=== PATIENT | female | born 1970 | race Caucasian/White ===

== ENCOUNTER 2017-11-25 19:35 | Emergency (ER) | payer OTHER ==
[~2017-11-25] VITALS: Ht 165.1 cm; Wt 60.8 kg
[2017-11-25] MEDS ORDERED: 'PARAFON FORTE500 M1 PO (20:06)
[2017-11-25] MEDS ORDERED: IBU800 MG PO (20:06)
== END 2017-11-25 19:55 | disposition home or self-care (01) ==
LOC: ED 19:35
DX: M25.512 Pain in left shoulder (principal); R03.0 Elevated blood-pressure reading, without diagnosis of hypertension; Z88.6 Allergy status to analgesic agent; Z88.8 Allergy status to other drugs, medicaments and biological substances

== ENCOUNTER → 2017-11-30 | Outpatient (CLI) | payer OTHER ==
[~2017-11-30] MED LIST: 'PARAFON FORTE500 M1 PO; IBU800 MG PO
== END | disposition home or self-care (01) ==
LOC: CARD 13:28
DX: I10 Essential (primary) hypertension (principal); R94.31 Abnormal electrocardiogram [ECG] [EKG]

== ENCOUNTER 2017-12-10 22:12 | Inpatient (IN) | payer OTHER ==
[~2017-12-10] VITALS: Ht 162.5 cm; Wt 59.9 kg
--- NOTE | ~2017-12-10 | CON ---
[place], [place] REPORT OF CONSULTATION NAME: ORGER WINCHESTER [facility] #: [id number] UNIT #: [id number] ROOM: 415 DOCTOR: EVELYN SAENZ MD BIRTHDATE: [birth year] DOS: 12/11/2017 REASON FOR CONSULTATION: Chest pain. HISTORY OF PRESENT ILLNESS: The patient is a 47-year-old woman who states that she has had a history of chest pain, but has never been diagnosed as having heart disease. She believes that she had a stress test about 5 years ago that was unremarkable. She states that she has had electrocardiograms that have been unremarkable. She is currently visiting in this area to assist, her parents have gotten older and ill. Typically, she lives in [place]. The patient states that she was undergoing physical therapy for a shoulder problem in early October 2017. The therapist pulled on her left arm, causing immediate sharp, severe shoulder pain. Since then, she has had a pain in her left upper anterior chest. The pains have worsened and are exacerbated by movement of the arm, deep breathing or twisting. She became concerned, however, and therefore because the pains were worse, she came to the Emergency Room. Currently, she is comfortable, but still has constant pain in her left arm. PAST MEDICAL HISTORY: Includes: 1. Essential hypertension. 2. Discoid lupus. 3. Rotator cuff injury. 4. Fibromyalgia. 5. Chronic back pain. 6. History of anxiety and panic. 7. History of stress testing 5 years ago while in [place]. The patient states that the results were unremarkable. MEDICATIONS: Prior to admission include amlodipine 2.5 mg per day, albuterol inhaler p.r.n., baclofen ____ mg b.i.d., chlorzoxazone 500 mg t.i.d. with food, diphenhydramine 12.5 mg q. 4 hours p.r.n. itching, hydroxyzine 25 mg p.r.n. anxiety, ibuprofen 800 mg t.i.d. p.r.n., loratadine 10 mg per day, methylphenidate 40 mg per day, topiramate 100 mg at bedtime, hydrocortisone applied daily and lidocaine cream t.i.d. p.r.n. ALLERGIES: She lists allergies to ASPIRIN and CYCLOBENZAPRINE. FAMILY HISTORY: The patient's mother has hypertension and diabetes. The patient's father is 70 years of old and recently developed heart failure. REVIEW OF SYSTEMS: The patient denies diplopia or loss of vision. She does feel weak in her left arm since she has had an injury to her shoulder. She is chronically fatigued. She does have diffuse muscle aching from fibromyalgia. She denies nausea or vomiting. She denies cough or hemoptysis. She denies hematemesis. She does have dry skin, but denies skin rashes. She denies any change in bowel or bladder habits and denies blood in her stools or urine. She denies any peripheral edema. The remainder of the review of systems is negative except as noted above. [place], [place] REPORT OF CONSULTATION NAME: ROGER WINCHESTER UNIT #: [id number] ROOM: [facility] DOCTOR: EVELYN SAENZ MD BIRTHDATE: [birth year] The patient does have multiple tattoos on her back and legs. SOCIAL HISTORY: The patient does not consume alcohol or cigarettes. PHYSICAL EXAMINATION: GENERAL: The patient is a slender white female who is awake, alert and oriented. VITAL SIGNS: Pulse is 67 and regular; blood pressure is 145/80. She is afebrile. HEENT: Normocephalic and atraumatic. Extraocular muscles are intact. Sclerae are clear. Pupils are equal, round and react to light. The oral mucosa is moist. Tongue is midline. NECK: Supple. She has no jugular distention. Carotids are full. I heard no bruits. She had no neck or supraclavicular masses and no thyromegaly. LUNGS: Respirations are unlabored. Her chest is clear to auscultation and percussion. She has no presacral edema or chest wall tenderness, aside from the diffuse muscular tenderness that she has when you palpate any portion of her body. HEART: Has a regular rhythm with a very soft fourth heart sound. There is no third heart sound or murmur. The PMI is not displaced. She has no precordial heave, lift or thrill. ABDOMEN: Soft and normally active without masses, organomegaly or bruits. EXTREMITIES: Showed no edema. Peripheral pulses were easily palpated in the feet bilaterally. She has multiple well-healed tattoos on her back and legs. LABORATORY DATA: I reviewed her electrocardiograms. She has sinus rhythm with nonspecific ST changes, but no acute ST elevations or depressions. Serial troponins have been negative x 3. Hemoglobin is 12.6, white count 6200, platelet count 281,000. Sodium 139, potassium 3.0 (being replaced), chloride 107, CO2 of 24, BUN 23, creatinine 1.05. Vitamin D level is somewhat low at 23.9. IMPRESSION: 1. Atypical chest pain. This is most likely musculoskeletal in origin, however. the patient is quite concerned about her heart and does have some risk factors. We will therefore proceed with a pharmacologic myocardial perfusion study. The patient believes that her fibromyalgia would preclude her from exercising for the test. 2. History of fibromyalgia. 3. Chronic fatigue. PLAN: We will proceed with a pharmacologic stress test as noted above. Further recommendations will depend upon the results of the stress test. We thank the hospitalist physicians for asking our advice regarding management of this patient. [place], [place] REPORT OF CONSULTATION NAME: ROGER WINCHESTER UNIT #: [id number] ROOM: 415 DOCTOR: EVELYN SAENZ MD BIRTHDATE: [birth year] EVELYN SAENZ MD CM:CONSTR:REPORT OF CONSULTATION 0924 12/11/17 0957 interface
[2017-12-10 22:29] VITALS: BP 162/73
[2017-12-10 22:38] LABS: BASO % 0.4 % (0.0-1.0); EOS # 0.1 10*3/uL (0.0-0.4); EOS % 0.7 % (1.0-4.0); HEMATOCRIT 38.1 % (37.0-47.0); LYMPH # 3.4 10*3/uL (1.3-4.4); MEAN CELL VOLUME 88.2 fl (81.0-99.0); MEAN CORPUSCULAR HGB 30.1 pg (27.0-31.0); MEAN CORPUSCULAR HGB CONC 34.1 g/dl (33.0-37.0); MEAN PLATELET VOLUME 9.5 fl (9.6-12.3); MONO # 0.9 10*3/uL (0.1-1.0); MONO % 8.8 % (3.0-9.0); NEUT # 5.9 10*3/uL (2.3-7.9); NEUT % 56.8 % (47.0-73.0); PLATELET COUNT AUTOMATED 297 10*3/uL (130-400); RED BLOOD COUNT 4.32 10*6/uL (4.10-5.10); RED CELL DISTRI WIDTH 12.8 % (0-14.5); WHITE BLOOD COUNT 10.4 10*3/uL (4.8-10.8)
[2017-12-10 22:48] LABS: ACT PARTIAL THROMBO TIME 27.2 SECONDS (20.8-31.5); INTERNATIONAL NORM RATIO 1.1 (2.0-3.5)
[2017-12-10 22:55] LABS: ALBUMIN 4.3 gm/dl (3.1-4.5); ALKALINE PHOSPHATASE 95 U/L (45-117); BUN 25 mg/dl (7-24); CHLORIDE 106 mmol/L (98-107); CREATININE 1.32 mg/dL (0.55-1.02); POTASSIUM 3.3 mmol/L (3.5-5.1); SGOT/AST 19 IU/L (3-35); SGPT/ALT 15 U/L (12-78); SODIUM 139 mmol/L (136-145); TOTAL PROTEIN 7.9 gm/dL (6.4-8.2)
[2017-12-10 22:56] LABS: TROPONIN I < 0.015 ng/ml (<0.045)
[2017-12-10 23:37] VITALS: BP 140/63
[2017-12-11 01:18] VITALS: BP 115/77
[2017-12-11] MEDS ORDERED: BACLOFEN20 M1 PO (01:49)
[2017-12-11] MEDS ORDERED: BENADRYL ALLERG25 M5 PO (01:49)
[2017-12-11 01:51] VITALS: BP 152/75
[2017-12-11] MEDS ORDERED: CORT DOME 0.5%30 GM T (02:43)
[2017-12-11] MEDS ORDERED: HYDROXYZINE HCL25 MG PO (02:47)
[2017-12-11] MEDS ORDERED: LIDOCAINE15 GM T (02:49)
[2017-12-11] MEDS ORDERED: CLARITIN10 MG PO (02:50)
[2017-12-11] MEDS ORDERED: METHYLPHENIDATE40 M3 PO (02:51)
[2017-12-11] MEDS ORDERED: PROVENTIL HFA6.7 GM INH (02:52)
[2017-12-11] MEDS ORDERED: TOPAMAX100 M1 PO (02:53)
[2017-12-11 04:52] LABS: BASO # 0.1 10*3/uL (0.0-0.1); BASO % 0.8 % (0.0-1.0); EOS # 0.1 10*3/uL (0.0-0.4); HEMATOCRIT 37.8 % (37.0-47.0); HEMOGLOBIN 12.6 g/dl (12.0-16.0); LYMPH % 48.5 % (27.0-41.0); MEAN CELL VOLUME 88.3 fl (81.0-99.0); MEAN CORPUSCULAR HGB 29.4 pg (27.0-31.0); MEAN CORPUSCULAR HGB CONC 33.3 g/dl (33.0-37.0); MEAN PLATELET VOLUME 9.5 fl (9.6-12.3); MONO # 0.5 10*3/uL (0.1-1.0); MONO % 8.1 % (3.0-9.0); NEUT # 2.6 10*3/uL (2.3-7.9); NEUT % 41.4 % (47.0-73.0); PLATELET COUNT AUTOMATED 281 10*3/uL (130-400); RED BLOOD COUNT 4.28 10*6/uL (4.10-5.10); RED CELL DISTRI WIDTH 12.8 % (0-14.5); WHITE BLOOD COUNT 6.2 10*3/uL (4.8-10.8)
[2017-12-11 05:02] LABS: ACT PARTIAL THROMBO TIME 28.7 SECONDS (20.8-31.5); INTERNATIONAL NORM RATIO 1.1 (2.0-3.5)
[2017-12-11 05:03] LABS: BUN 23 mg/dl (7-24); CHLORIDE 107 mmol/L (98-107); CREATININE 1.05 mg/dL (0.55-1.02); SODIUM 139 mmol/L (136-145)
[2017-12-11 05:08] LABS: HDL CHOLESTEROL 59 mg/dl (40-60); TRIGLYCERIDES 143 mg/dl (<150); VLDL CHOLESTEROL 29 mg/dL (6-40)
[2017-12-11 05:56] LABS: CHOLESTEROL 162 mg/dL (<200); LDL CHOLESTEROL 74 mg/dL (9-159)
[2017-12-11 08:00] VITALS: BP 145/80
[2017-12-11 08:13] LABS: VITAMIN D, 25-HYDROXY 23.9 ng/mL (30-100)
[2017-12-11] MEDS ORDERED: BENADRYL A12.5 MG/1 PO (11:19)
[2017-12-11 12:00] VITALS: BP 136/78
[2017-12-11 16:00] VITALS: BP 132/65
[2017-12-11 20:00] VITALS: BP 104/71
[2017-12-12] VITALS: BP 104/52
[2017-12-12 04:07] VITALS: BP 108/72
[2017-12-12 06:44] LABS: BASO # 0.1 10*3/uL (0.0-0.1); BASO % 0.9 % (0.0-1.0); EOS # 0.2 10*3/uL (0.0-0.4); EOS % 3.1 % (1.0-4.0); HEMATOCRIT 36.1 % (37.0-47.0); LYMPH % 35.6 % (27.0-41.0); MEAN CELL VOLUME 89.1 fl (81.0-99.0); MEAN CORPUSCULAR HGB 29.6 pg (27.0-31.0); MEAN CORPUSCULAR HGB CONC 33.2 g/dl (33.0-37.0); MEAN PLATELET VOLUME 9.7 fl (9.6-12.3); MONO # 0.6 10*3/uL (0.1-1.0); MONO % 10.6 % (3.0-9.0); NEUT # 2.7 10*3/uL (2.3-7.9); NEUT % 49.4 % (47.0-73.0); PLATELET COUNT AUTOMATED 253 10*3/uL (130-400); RED BLOOD COUNT 4.05 10*6/uL (4.10-5.10); RED CELL DISTRI WIDTH 13.1 % (0-14.5); WHITE BLOOD COUNT 5.5 10*3/uL (4.8-10.8)
[2017-12-12 07:12] LABS: ALBUMIN 3.5 gm/dl (3.1-4.5); ALKALINE PHOSPHATASE 84 U/L (45-117); BUN 25 mg/dl (7-24); CHLORIDE 113 mmol/L (98-107); CREATININE 1.06 mg/dL (0.55-1.02); POTASSIUM 3.9 mmol/L (3.5-5.1); SGOT/AST 12 IU/L (3-35); SGPT/ALT 15 U/L (12-78); SODIUM 143 mmol/L (136-145); TOTAL PROTEIN 6.5 gm/dL (6.4-8.2)
[2017-12-12 08:00] VITALS: BP 104/54; BP 137/73
[2017-12-12] MEDS ORDERED: CEPHALEXIN250 MG PO (11:03)
[2017-12-12] MEDS ORDERED: NORVASC2.5 MG PO (11:31)
== END 2017-12-12 15:00 | disposition home or self-care (01) | DRG 313 ==
LOC: ED 22:12 → EDHOLD 12-11 00:50 → 4E 12-11 00:50
PROVIDERS: Emergency Medicine Emergency Medical Services; Internal Medicine; Registered Nurse
PROC: 4A02XM4 Measurement of Cardiac Total Activity, External Approach (ICD-10-PCS; principal; 2017-12-11)
PROC: 3E073KZ Introduction of Other Diagnostic Substance into Coronary Artery, Percutaneous Approach (ICD-10-PCS; 2017-12-11)
DX: R07.89 Other chest pain (principal); A69.20 Lyme disease, unspecified; E87.6 Hypokalemia; M25.512 Pain in left shoulder; G89.29 Other chronic pain; M79.7 Fibromyalgia; L93.0 Discoid lupus erythematosus; R03.0 Elevated blood-pressure reading, without diagnosis of hypertension; E55.9 Vitamin D deficiency, unspecified; F41.9 Anxiety disorder, unspecified; G43.909 Migraine, unspecified, not intractable, without status migrainosus; M54.9 Dorsalgia, unspecified; F43.10 Post-traumatic stress disorder, unspecified; M06.9 Rheumatoid arthritis, unspecified; Z83.3 Family history of diabetes mellitus; Z82.49 Family history of ischemic heart disease and other diseases of the circulatory system; Z88.6 Allergy status to analgesic agent; Z88.8 Allergy status to other drugs, medicaments and biological substances; Z79.899 Other long term (current) drug therapy

== ENCOUNTER → 2018-04-13 | Outpatient (CLI) | payer OTHER ==
[~2018-04-13] MED LIST changes: +BACLOFEN20 M1 PO; +BENADRYL A12.5 MG/1 PO; +BENADRYL ALLERG25 M5 PO; +CEPHALEXIN250 MG PO; +CLARITIN10 MG PO; +CORT DOME 0.5%30 GM T; +HYDROXYZINE HCL25 MG PO; +LIDOCAINE15 GM T; +METHYLPHENIDATE40 M3 PO; +NORVASC2.5 MG PO; +PROVENTIL HFA6.7 GM INH; +TOPAMAX100 M1 PO
[2018-04-13 13:02] LABS: HEMATOCRIT 40.7 % (37.0-47.0); HEMOGLOBIN 13.7 g/dl (12.0-16.0); MEAN CELL VOLUME 91.3 fl (81.0-99.0); MEAN CORPUSCULAR HGB 30.7 pg (27.0-31.0); MEAN CORPUSCULAR HGB CONC 33.7 g/dl (33.0-37.0); RED BLOOD COUNT 4.46 10*6/uL (4.10-5.10); RED CELL DISTRI WIDTH 13.2 % (0-14.5); WHITE BLOOD COUNT 6.6 10*3/uL (4.8-10.8)
[2018-04-13 13:06] LABS: ALBUMIN 3.7 gm/dl (3.1-4.5); ALKALINE PHOSPHATASE 90 U/L (45-117); BUN 17 mg/dl (7-24); CHLORIDE 107 mmol/L (98-107); CHOLESTEROL 228 mg/dL (<200); CREATININE 1.04 mg/dL (0.55-1.02); HDL CHOLESTEROL 73 mg/dl (40-60); LDL CHOLESTEROL 120 mg/dL (9-159); POTASSIUM 4.2 mmol/L (3.5-5.1); SGOT/AST 13 IU/L (3-35); SGPT/ALT 12 U/L (12-78); SODIUM 137 mmol/L (136-145); TOTAL PROTEIN 7.5 gm/dL (6.4-8.2); TRIGLYCERIDES 173 mg/dl (<150); VLDL CHOLESTEROL 35 mg/dL (6-40)
[2018-04-13 13:44] LABS: VITAMIN D, 25-HYDROXY 23.9 ng/mL (30-100)
== END | disposition home or self-care (01) ==
LOC: LAB 12:00
PROVIDERS: Family Medicine
DX: E78.00 Pure hypercholesterolemia, unspecified (principal); I10 Essential (primary) hypertension; M54.5 Low back pain; F90.9 Attention-deficit hyperactivity disorder, unspecified type; J31.0 Chronic rhinitis; R19.7 Diarrhea, unspecified

== ENCOUNTER → 2018-04-14 | Outpatient (CLI) | payer OTHER | END | disposition home or self-care (01) | LOC: LAB 11:18 | DX: I10 Essential (primary) hypertension (principal); E78.00 Pure hypercholesterolemia, unspecified; K52.9 Noninfective gastroenteritis and colitis, unspecified; M54.5 Low back pain ==

== ENCOUNTER → 2018-05-16 | Outpatient (CLI) | payer OTHER ==
[2018-05-16 15:10] LABS: HEMATOCRIT 38.3 % (37.0-47.0); HEMOGLOBIN 12.5 g/dl (12.0-16.0); MEAN CELL VOLUME 91.6 fl (81.0-99.0); MEAN CORPUSCULAR HGB 29.9 pg (27.0-31.0); MEAN CORPUSCULAR HGB CONC 32.6 g/dl (33.0-37.0); MEAN PLATELET VOLUME 9.6 fl (9.6-12.3); RED BLOOD COUNT 4.18 10*6/uL (4.10-5.10); RED CELL DISTRI WIDTH 12.9 % (0-14.5); WHITE BLOOD COUNT 6.9 10*3/uL (4.8-10.8)
[2018-05-16 15:33] LABS: ALBUMIN 3.9 gm/dl (3.1-4.5); BUN 19 mg/dl (7-24); CHLORIDE 110 mmol/L (98-107); POTASSIUM 3.7 mmol/L (3.5-5.1); SGOT/AST 15 IU/L (3-35); SODIUM 140 mmol/L (136-145); TOTAL PROTEIN 7.6 gm/dL (6.4-8.2)
[2018-05-16 15:45] LABS: ALKALINE PHOSPHATASE 101 U/L (45-117); CREATININE 1.07 mg/dL (0.55-1.02); FREE T4 0.84 ng/dl (0.76-1.46); SGPT/ALT 13 U/L (12-78)
[2018-05-17 08:09] LABS: HEPATITIS B SURFACE AG Negative (Negative); HEPATITIS C VIRUS ANTIBODY <0.1 s/co (0.0-0.9); RHEUMATOID ARTHRITIS FACTOR 10.7 IU/mL (0.0-13.9)
[2018-05-18 02:07] LABS: TESTOSTERONE FREE, (DIRECT) <0.2 pg/mL (0.0-4.2)
== END | disposition home or self-care (01) ==
LOC: LAB 14:23
PROVIDERS: Family Medicine
DX: E55.9 Vitamin D deficiency, unspecified (principal); E87.6 Hypokalemia; M25.50 Pain in unspecified joint; R63.5 Abnormal weight gain; R53.83 Other fatigue

== ENCOUNTER → 2018-05-25 | Outpatient (CLI) | payer OTHER | END | disposition home or self-care (01) | LOC: RAD 16:59 | DX: M51.37 Other intervertebral disc degeneration, lumbosacral region (principal) ==

== ENCOUNTER 2021-07-05 12:18 | Inpatient (IN) | payer OTHER ==
[2021-07-05] VITALS (7 sets, daily range): BP systolic 128–147; BP diastolic 70–90
[~2021-07-05] VITALS: Ht 162.5 cm; Wt 62.6 kg
[2021-07-05 13:04] LABS: BASO # 0.1 10*3/uL (0.0-0.1); BASO % 0.8 % (0.0-1.0); EOS # 0.1 10*3/uL (0.0-0.4); EOS % 1.1 % (1.0-4.0); HEMATOCRIT 41.6 % (37.0-47.0); LYMPH # 1.8 10*3/uL (1.3-4.4); MEAN CELL VOLUME 91.4 fl (81.0-99.0); MEAN CORPUSCULAR HGB 29.7 pg (27.0-31.0); MEAN CORPUSCULAR HGB CONC 32.5 g/dl (33.0-37.0); MEAN PLATELET VOLUME 9.9 fl (9.6-12.3); MONO # 0.7 10*3/uL (0.1-1.0); MONO % 7.3 % (3.0-9.0); NEUT # 6.3 10*3/uL (2.3-7.9); NEUT % 70.5 % (47.0-73.0); PLATELET COUNT AUTOMATED 295 10*3/uL (130-400); RED BLOOD COUNT 4.55 10*6/uL (4.10-5.10); RED CELL DISTRI WIDTH 13.4 % (0-14.5); WHITE BLOOD COUNT 8.9 10*3/uL (4.8-10.8)
[2021-07-05 13:23] LABS: ALBUMIN 3.7 gm/dl (3.1-4.5); ALKALINE PHOSPHATASE 126 U/L (45-117); BUN 20 mg/dl (7-24); CHLORIDE 109 mmol/L (98-107); CREATININE 1.08 mg/dL (0.55-1.02); POTASSIUM 3.5 mmol/L (3.5-5.1); SGOT/AST 8 IU/L (3-35); SGPT/ALT 13 U/L (12-78); SODIUM 138 mmol/L (136-145); TOTAL PROTEIN 7.2 gm/dL (6.4-8.2)
[2021-07-05 13:24] LABS: BILIRUBIN Negative (Negative); BLOOD 3+ (Negative); CLARITY Clear (Clear); COLOR Yellow (Yellow); GLUCOSE Negative (Negative); KETONE Negative (Negative); LEUKO ESTERASE 2+ (Negative); NITRITE Positive (Negative); SPECIFIC GRAVITY 1.015 (1.001-1.030); UROBILINOGEN 0.2 E.U./dl (0.0-1.0)
[2021-07-05 13:38] LABS: BACTERIA 4+; RBC 51-100 rbc/hpf (0-2)
[2021-07-05] MEDS ORDERED: 'XANAX1 MG PO (15:47)
[2021-07-05] MEDS ORDERED: BUPROPION HYDR150 M3 PO (15:47)
[2021-07-05] MEDS ORDERED: FAMOTIDINE20 M1 PO (15:48)
[2021-07-05] MEDS ORDERED: NURTEC ODT75 MG PO (15:51)
[2021-07-05] MEDS ORDERED: TRULANCE 3 MG PO (17:00)
[2021-07-05] MEDS ORDERED: PANTOPRAZOLE SO40 MG PO (17:01)
[2021-07-05] MEDS ORDERED: RIZATRIPTAN10 MG PO (17:46)
[2021-07-06] VITALS: BP 101/57
[2021-07-06] MEDS ORDERED: ACETAMINOPHEN500 M4 PO (03:35)
[2021-07-06] MEDS ORDERED: CHLORZOXAZONE500 M2 PO (03:38)
[2021-07-06] MEDS ORDERED: Motrin,Rufen800 MG PO (03:41)
[2021-07-06] MEDS ORDERED: VESICARE10 MG PO (03:52)
[2021-07-06] MEDS ORDERED: VITAMIN B-121000 MC2 PO (03:53)
[2021-07-06 06:10] LABS: BASO # 0.1 10*3/uL (0.0-0.1); BASO % 0.4 % (0.0-1.0); EOS # 0.1 10*3/uL (0.0-0.4); EOS % 0.4 % (1.0-4.0); HEMATOCRIT 37.1 % (37.0-47.0); LYMPH # 1.4 10*3/uL (1.3-4.4); LYMPH % 7.3 % (27.0-41.0); MEAN CELL VOLUME 91.2 fl (81.0-99.0); MEAN CORPUSCULAR HGB CONC 32.9 g/dl (33.0-37.0); MEAN PLATELET VOLUME 10.1 fl (9.6-12.3); MONO # 1.2 10*3/uL (0.1-1.0); MONO % 6.2 % (3.0-9.0); NEUT # 16.9 10*3/uL (2.3-7.9); NEUT % 84.9 % (47.0-73.0); PLATELET COUNT AUTOMATED 218 10*3/uL (130-400); RED BLOOD COUNT 4.07 10*6/uL (4.10-5.10); RED CELL DISTRI WIDTH 13.7 % (0-14.5); WHITE BLOOD COUNT 19.8 10*3/uL (4.8-10.8)
[2021-07-06 06:23] LABS: ALBUMIN 2.8 gm/dl (3.1-4.5); BUN 23 mg/dl (7-24); CHLORIDE 109 mmol/L (98-107); CHOLESTEROL 174 mg/dL (<200); CREATININE 1.02 mg/dL (0.55-1.02); POTASSIUM 3.5 mmol/L (3.5-5.1); SGOT/AST 30 IU/L (3-35); SGPT/ALT 24 U/L (12-78); SODIUM 137 mmol/L (136-145); TRIGLYCERIDES 93 mg/dl (<150)
[2021-07-06 06:30] LABS: ALKALINE PHOSPHATASE 110 U/L (45-117); FREE T4 0.69 ng/dl (0.76-1.46); LDL CHOLESTEROL 85 mg/dL (9-159); THYROID STIM HORMONE (HS) 0.855 uIU/ml (0.358-4.75)
[2021-07-06 08:00] VITALS: BP 117/67
[2021-07-06 08:53] LABS: VITAMIN D, 25-HYDROXY 30.6 ng/mL (30-100)
[2021-07-06 12:00] VITALS: BP 111/65
== END 2021-07-06 17:00 | disposition short-term general hospital (02) | DRG 720 ==
LOC: ED 12:18 → EDHOLD 14:56 → 4E 14:56
PROVIDERS: Registered Nurse; Student in an Organized Health Care Education/Training Program; ADMIT Internal Medicine; ATTEND Internal Medicine
DX: A41.9 Sepsis, unspecified organism (principal); N12 Tubulo-interstitial nephritis, not specified as acute or chronic; N20.0 Calculus of kidney; F41.9 Anxiety disorder, unspecified; A69.20 Lyme disease, unspecified; F43.10 Post-traumatic stress disorder, unspecified; L93.0 Discoid lupus erythematosus; M79.7 Fibromyalgia; N13.30 Unspecified hydronephrosis; N13.4 Hydroureter; N18.31 Chronic kidney disease, stage 3a; Z20.822 Contact with and (suspected) exposure to COVID-19; G89.29 Other chronic pain; R16.0 Hepatomegaly, not elsewhere classified; G43.909 Migraine, unspecified, not intractable, without status migrainosus; M06.9 Rheumatoid arthritis, unspecified; E55.9 Vitamin D deficiency, unspecified; Z88.6 Allergy status to analgesic agent; Z88.8 Allergy status to other drugs, medicaments and biological substances; Z82.49 Family history of ischemic heart disease and other diseases of the circulatory system; Z83.3 Family history of diabetes mellitus; Z79.51 Long term (current) use of inhaled steroids; Z79.899 Other long term (current) drug therapy

== ENCOUNTER → 2022-12-19 | Outpatient (CLI) | payer OTHER ==
[~2022-12-19] MED LIST changes: +'XANAX1 MG PO; +ACETAMINOPHEN500 M4 PO; +BUPROPION HYDR150 M3 PO; +CHLORZOXAZONE500 M2 PO; +FAMOTIDINE20 M1 PO; +Motrin,Rufen800 MG PO; +NURTEC ODT75 MG PO; +PANTOPRAZOLE SO40 MG PO; +RIZATRIPTAN10 MG PO; +TRULANCE 3 MG PO; +VESICARE10 MG PO; +VITAMIN B-121000 MC2 PO
== END | disposition home or self-care (01) ==
LOC: CARD 00:07
PROVIDERS: ATTEND Internal Medicine Cardiovascular Disease
DX: R07.2 Precordial pain (principal); R06.02 Shortness of breath

== ENCOUNTER 2023-04-29 10:36 | Emergency (ER) | payer OTHER ==
[~2023-04-29] VITALS: Ht 162.5 cm; Wt 77.1 kg
[2023-04-29 10:58] LABS: BILIRUBIN Negative (Negative); BLOOD 1+ (Negative); CLARITY Clear (Clear); COLOR Yellow (Yellow); GLUCOSE Negative (Negative); KETONE 3+ (Negative); LEUKO ESTERASE 2+ (Negative); NITRITE Negative (Negative)
[2023-04-29 11:06] LABS: URINE AMPHETAMINES Negative (1000ng/ml); URINE BARBITURATES Negative (200ng/ml); URINE BENZODIAZEPINES Positive (200ng/ml); URINE CANNABINOIDS (THC) Negative (50ng/ml); URINE COCAINE Negative (300ng/ml); URINE METHADONE Negative (300ng/ml); URINE OPIATES Negative (300ng/ml); URINE PHENCYCLIDINE Negative (25ng/ml)
[2023-04-29 11:07] LABS: BACTERIA 2+; MUCOUS 1+; WBC 51-100 wbc/hpf (0-5)
[2023-04-29 12:00] LABS: BASO # 0.1 10*3/uL (0.0-0.1); BASO % 0.7 % (0.0-1.0); EOS % 0.1 % (1.0-4.0); HEMATOCRIT 43.6 % (37.0-47.0); LYMPH # 1.1 10*3/uL (1.3-4.4); LYMPH % 11.8 % (27.0-41.0); MEAN CELL VOLUME 88.1 fl (81.0-99.0); MEAN CORPUSCULAR HGB 29.3 pg (27.0-31.0); MEAN CORPUSCULAR HGB CONC 33.3 g/dl (33.0-37.0); MEAN PLATELET VOLUME 9.3 fl (9.6-12.3); MONO # 0.4 10*3/uL (0.1-1.0); MONO % 4.6 % (3.0-9.0); NEUT # 7.7 10*3/uL (2.3-7.9); NEUT % 82.5 % (47.0-73.0); PLATELET COUNT AUTOMATED 362 10*3/uL (130-400); RED BLOOD COUNT 4.95 10*6/uL (4.10-5.10); RED CELL DISTRI WIDTH 13.6 % (0-14.5); WHITE BLOOD COUNT 9.4 10*3/uL (4.8-10.8)
[2023-04-29 12:20] LABS: ALKALINE PHOSPHATASE 128 U/L (46-116); BUN 15 mg/dl (9-23); CHLORIDE 105 mmol/L (98-107); CPK 950 U/L (34-171); POTASSIUM 3.5 mmol/L (3.4-5.1); SGPT/ALT 16 U/L (10-49)
[2023-04-29] MEDS ORDERED: CEPHALEXIN500 M1 PO (12:43)
== END 2023-04-29 12:47 | disposition home or self-care (01) ==
LOC: ED 10:36
PROVIDERS: Internal Medicine; Student in an Organized Health Care Education/Training Program
DX: F22 Delusional disorders (principal); Z88.6 Allergy status to analgesic agent; Z79.899 Other long term (current) drug therapy; Z90.49 Acquired absence of other specified parts of digestive tract

== ENCOUNTER 2023-06-22 11:23 | Emergency (ER) | payer OTHER ==
[~2023-06-22] VITALS: Wt 78.0 kg
[~2023-06-22 11:23] MED LIST changes: +CEPHALEXIN500 M1 PO
[2023-06-22] MEDS ORDERED: PREDNISONE50 MG PO ×2 (13:39→14:07)
== END 2023-06-22 13:55 | disposition home or self-care (01) ==
LOC: ED 11:23
DX: M94.0 Chondrocostal junction syndrome [Tietze] (principal); M79.7 Fibromyalgia; Z88.6 Allergy status to analgesic agent; Z88.8 Allergy status to other drugs, medicaments and biological substances; Z79.899 Other long term (current) drug therapy; Z98.890 Other specified postprocedural states; Z90.49 Acquired absence of other specified parts of digestive tract